=== PATIENT | female | born 1965 | race Hispanic/Latino ===

== ENCOUNTER 2021-09-10 20:57 | Emergency (ER) | payer SELFPAY ==
[2021-09-10] MEDS ORDERED: cloNIDine 0.2 MG TAB PO ONE (21:37)
[2021-09-10 21:38] LABS: Basophils % (Auto) 0.5 % (0.0-1.8); Eosinophils # (Auto) 0.4 K/mm3 (0.0-0.4); Eosinophils % (Auto) 5.7 % (0.0-4.3); Hematocrit 41.6 % (30.3-42.9); Hemoglobin 14.6 gm/dl (10.1-14.3); Lymphocytes # (Auto) 1.5 K/mm3 (1.2-5.4); Lymphocytes % (Auto) 20.7 % (13.4-35.0); Mean Corpuscular HGB Conc 35 % (30-34); Mean Corpuscular Volume 97 fl (79-97); Monocytes # (Auto) 0.5 K/mm3 (0.0-0.8); Monocytes % (Auto) 6.5 % (0.0-7.3); Platelet Count 189 K/mm3 (140-440); Red Blood Count 4.27 M/mm3 (3.65-5.03); Red Cell Distribution Width 13.2 % (13.2-15.2)
[2021-09-10 21:57] LABS: BUN/Creatinine Ratio 17; Blood Urea Nitrogen 15 mg/dL (7-17); Calcium 9.3 mg/dL (8.4-10.2); Hemolysis Index 13
[2021-09-10] MEDS ORDERED: POTASSIUM CHLORIDE ER 20 MEQ TAB PO ONE (22:02)
[2021-09-10] MEDS ORDERED: hydrALAZINE 20 MG/1 ML INJ IV ONE ×2 (22:50→23:40)
[2021-09-10 23:32] LABS: Bilirubin,Urine NEG (Negative); Blood,Urine MOD (Negative); Color,Urine Straw (Yellow); Protein,Urine <15 mg/dL mg/dL (Negative)
[2021-09-10 23:35] LABS: Amphetamine Screen,Urine Negative; Benzodiazepines Screen,Urine Negative; Cannabinoid Screen,Urine Negative; Cocaine Screen,Urine Negative; Methadone Screen,Urine Negative; Opiate Screen,Urine Negative
--- NOTE | 2021-09-11 00:30 | Emergency Department Report ---
ED Psych HPI - General Stated Complaint: MH EVAL Time Seen by Provider: 09/10/21 21:11 Source: family, EMS Mode of arrival: Ambulatory Limitations: Language Barrier - History of Present Illness Initial Comments: famil requested MH evaluation for halucination and violence , H.O of schizophrenia not taking her meds Complaint: other -: days(s) Associated Psychiatric Symptoms: auditory hallucinations History of same: Yes Quality: constant Context: not taking psychiatric Associated Symptoms: denies: denies other symptoms, confusion, headache - Related Data Previous Rx's Medication Instructions Recorded Last Taken Type amLODIPine 10 mg PO DAILY #30 tab 05/28/13 Unknown Rx hydroCHLOROthiazide [HCTZ] 12.5 mg PO QDAY #30 capsule 05/28/13 Unknown Rx Mirtazapine [Remeron] 7.5 mg PO QHS #30 09/12/21 Unknown Rx risperiDONE [RisperDAL] 0.5 mg PO BID #60 09/12/21 Unknown Rx Allergies Allergy/AdvReac Type Severity Reaction Status Date / Time No Known Allergies Allergy Unverified 05/25/13 22:08 ED Review of Systems ROS: Stated complaint: MH EVAL Other details as noted in HPI Comment: language ED Past Medical Hx - Past Medical History Previous Medical History?: Yes Hx Psychiatric Treatment: Yes (schizophrenia) Additional medical history: paranoia, hallucinations, aggressive behavior. - Surgical History Past Surgical History?: No Additional Surgical History: unknown - Social History Smoking Status: Unknown if ever smoked Substance Use Type: None - Medications Home Medications: Home Medications Medication Instructions Recorded Confirmed Last Taken Type amLODIPine 10 mg PO DAILY #30 tab 05/28/13 09/11/21 Unknown Rx hydroCHLOROthiazide [HCTZ] 12.5 mg PO QDAY #30 capsule 05/28/13 09/11/21 Unknown Rx Mirtazapine [Remeron] 7.5 mg PO QHS #30 09/12/21 Unknown Rx risperiDONE [RisperDAL] 0.5 mg PO BID #60 09/12/21 Unknown Rx ED Physical Exam - General Limitations: Language Barrier General appearance: alert - Head Head exam: Present: atraumatic, normocephalic - Eye Eye exam: Present: normal appearance - ENT ENT exam: Present: mucous membranes moist - Neck Neck exam: Present: normal inspection - Respiratory Respiratory exam: Present: normal lung sounds bilaterally. Absent: respiratory distress - Cardiovascular Cardiovascular Exam: Present: regular rate, normal rhythm. Absent: systolic murmur, diastolic murmur, rubs, gallop - GI/Abdominal GI/Abdominal exam: Present: soft, normal bowel sounds - Extremities Exam Extremities exam: Present: normal inspection - Back Exam Back exam: Present: normal inspection - Neurological Exam Neurological exam: Present: alert, oriented X3 - Psychiatric Psychiatric exam: Present: flat affect - Skin Skin exam: Present: warm, dry, intact, normal color. Absent: rash ED Course Vital Signs 09/10/21 09/10/21 09/10/21 21:29 22:52 23:46 Temperature 98.7 F Pulse Rate 77 72 Respiratory 18 Rate Blood Pressure 224/114 Blood Pressure 265/137 229/106 [Left] O2 Sat by Pulse 97 Oximetry 09/11/21 09/11/21 09/11/21 00:23 06:12 14:32 Temperature 98.2 F Pulse Rate 63 65 Respiratory 18 Rate Blood Pressure Blood Pressure 143/77 177/90 [Left] O2 Sat by Pulse 98 98 96 Oximetry 09/11/21 09/12/21 09/12/21 20:21 05:32 09:00 Temperature 98.7 F 98.9 F Pulse Rate 63 66 Respiratory 18 18 Rate Blood Pressure Blood Pressure 189/103 162/87 [Left] O2 Sat by Pulse 100 98 97 Oximetry ED Medical Decision Making - Lab Data Result diagrams: 09/10/21 21:29 09/10/21 21:29 Critical care attestation.: If time is entered above; I have spent that time in minutes in the direct care of this critically ill patient, excluding procedure time. ED Disposition Clinical Impression: Schizophrenia Disposition: 01 HOME / SELF CARE / HOMELESS Is pt being admited?: No Does the pt Need Aspirin: No Condition: Stable Instructions: Schizophrenia, Supporting Someone With Schizophrenia, Managing Schizophrenia Additional Instructions: Professional and Agency Contacts To help [facility] (08/12) [place] Crisis Line: Suicide Prevention Line: Crisis Text Line: Text START to 417793 Emergency: 911 Outpatient COMMUNITY Behavioral Health Resources: [facility]: [facility] [address], [place] [address] [facility] [address] [place] [address] Thursday thru Thursday - 8am - 5pm Call to schedule an assessment for mental health and substance abuse programs [facility] Address: [address] [place] [address] Thursday thru Thursday- 7am-2pm [facility] Address: [address] [place] [id number] Thursday thrthursday: 8:30AM-5PM Prescriptions: Mirtazapine [Remeron] 7.5 mg PO QHS #30 risperiDONE [RisperDAL] 0.5 mg PO BID #60 Referrals: PRIMARY CARE, [Primary Care Provider] - 3-5 Days
[2021-09-11] MEDS ORDERED: diphenhydrAMINE 50 MG/ML VIAL IM PRN (08:15)
[2021-09-11] MEDS ORDERED: LORazepam 2 MG/ML VIAL IM PRN (08:15)
[2021-09-11] MEDS ORDERED: HALOPERIDOL LACTATE 5 MG/1 ML INJ IM PRN (08:15)
--- NOTE | 2021-09-11 12:30 | Consultation ---
History of Present Illness - Reason for Consult Consult date: 09/11/21 Reason for consult: hallucinations - History of Present Psychiatric Illness HPI: famil requested MH evaluation for halucination and violence , H.O of schizophrenia not taking her meds. The patient was seen today. An trucksmith was used. The patient appears subdued, and unable to give a lot of information. She doesn't respond to most questions, or is slow to respond. She says her son called 911 because she had a fever. This is not the reason noted for the patient being brought to the ER. She says she has a history of schizophrenia. I'm unable to get further information out of this patient. Will start medications based on the son's collateral, and recommend inpatient until I'm able to get more out of the patient. PAST PSYCHIATRIC HISTORY: Unable to obtain PAST MEDICAL HISTORY: Family Psychiatric History: None reported or documented SOCIAL HISTORY Unable to obtain REVIEW OF SYSTEMS Unable to obtain MENTAL STATUS EXAMINATION Unable to obtain Diagnoses: Schizophrenia Treatment Plan: 1013 Start Remeron 7.5mg po qhs Start Risperidone 0.5mg po BID PSYCHOTHERAPY: Supportive psychotherapy provided MEDICAL: Per primary team DELIRIUM PRECAUTIONS: Please re-orient patient frequently, keep lights on during the day, and minimize benzodiazepines and opiates as these medications could worsen patient's confusion. INSTRUCTIONAL TECHNOLOGY TEACHER: Per medical team DISPOSITION: recommend acute inpatient psychiatric hospitalization at this time. FOLLOW-UP: Will follow Thank you for the consult. Please contact with any questions and/or concerns. Medications and Allergies Allergies Allergy/AdvReac Type Severity Reaction Status Date / Time No Known Allergies Allergy Unverified 05/25/13 22:08 Home Medications Medication Instructions Recorded Confirmed Last Taken Type amLODIPine 10 mg PO DAILY #30 tab 05/28/13 Unknown Rx hydroCHLOROthiazide [HCTZ] 12.5 mg PO QDAY #30 capsule 05/28/13 Unknown Rx Active Meds: Active Medications Diphenhydramine HCl (Diphenhydramine 50 Mg/Ml Vial) 50 mg IM Q6H PRN PRN Reason: Agitation Last Admin: 09/11/21 08:30 Dose: 50 mg Haloperidol Lactate (Haloperidol Lactate 5 Mg/1 Ml Inj) 10 mg IM Q8H PRN PRN Reason: Agitation Lorazepam (Lorazepam 2 Mg/Ml Vial) 2 mg IM Q8H PRN PRN Reason: Agitation Last Admin: 09/11/21 08:30 Dose: 2 mg Mental Status Exam - Vital signs Last Vital Signs Temp 98.7 F 09/10/21 21:29 Pulse 63 09/11/21 00:23 Resp 18 09/10/21 21:29 BP 143/77 09/11/21 00:23 Pulse Ox 98 09/11/21 06:12 Results Result Diagrams: 09/10/21 21:29 09/10/21 21:29 Abnormal lab results 09/10/21 09/10/21 09/10/21 Range/Units 21:29 21:29 21:29 Hgb 14.6 H (10.1-14.3) gm/dl MCH 34 H (28-32) pg MCHC 35 H (30-34) % Eos % (Auto) 5.7 H (0.0-4.3) % Potassium 3.0 L (3.6-5.0) mmol/L Salicylates < 0.3 L (2.8-20.0) mg/dL Acetaminophen (10.0-30.0) ug/mL 09/10/21 Range/Units 21:29 Hgb (10.1-14.3) gm/dl MCH (28-32) pg MCHC (30-34) % Eos % (Auto) (0.0-4.3) % Potassium (3.6-5.0) mmol/L Salicylates (2.8-20.0) mg/dL Acetaminophen 5.0 L (10.0-30.0) ug/mL All other labs normal.
[2021-09-11] MEDS: risperiDONE 0.25 MG TAB PO SCH (13:11)
[2021-09-11] MEDS ORDERED: MIRTAZAPINE 15 MG TAB PO SCH (22:00)
--- NOTE | 2021-09-12 09:37 | Progress Note ---
Subjective - Reason for Consult Consult date: 09/12/21 Reason for consult: MHE - Chief Complaint Chief complaint: The patient was seen today. An lang interpreter was utilized. The patient says she feels good and she slept good. She says she lives with her kids and ready to go home. The patient denies SI/HI or hallucinations of any kind. I discussed with the patient the importance of continuing her medications. She verbalized understanding. This patient is clear from psych standpoint. She can now be treated on an outpatient basis. REVIEW OF SYSTEMS Constitutional: Negative for weight loss ENT: Negative for stridor Respiratory: Negative for cough or hemoptysis All other systems reviewed and are negative MENTAL STATUS EXAMINATION General Appearance and Behavior: Age appropriate, good hygiene, wearing appropriate clothes, good eye contact, calm, cooperative Cooperation: Participating/engaged Psychomotor Behavior: Psychomotor normal Mood: good Affect and affective range: congruent with stated mood Thought Process: logical Thought Content: None Speech: normal tone and pace Suicidal Ideation: Denies Homicidal Ideation: Denies Hallucinations: Denies Delusions: None elicited Impulse Control: Limited Insight and Judgment: Limited insight and judgment Memory: Limited Attention: attentive Orientation: Alert, oriented Diagnoses: Schizophrenia Treatment Plan: d/c 1013 Remeron 7.5mg po qhs Risperidone 0.5mg po BID PSYCHOTHERAPY: Supportive psychotherapy provided MEDICAL: Per primary team DELIRIUM PRECAUTIONS: Please re-orient patient frequently, keep lights on during the day, and minimize benzodiazepines and opiates as these medications could worsen patient's confusion. PSYCHOLOGISTS: Per medical team DISPOSITION: Do not recommend acute inpatient psychiatric hospitalization at this time. The head athletic trainer to provide the patient with all necessary resources. FOLLOW-UP: Will sign off. Thank you for the consult. Please contact with any questions and/or concerns. Case staffed with Dr. Brock. Mental Status Exam - Vital signs Last Vital Signs Temp 98.7 F 09/11/21 20:21 Pulse 63 09/11/21 20:21 Resp 18 09/11/21 20:21 BP 189/103 09/11/21 20:21 Pulse Ox 98 09/12/21 05:32
[2021-09-12] MEDS: risperiDONE 0.25 MG TAB PO SCH (09:58)
[2021-09-12] MEDS ORDERED: POTASSIUM CHLORIDE ER 20 MEQ TAB PO ONE (11:05)
[2021-09-12 11:12] VITALS: BP 162/87
== END 2021-09-12 12:42 | disposition home or self-care (01) ==
LOC: ED 20:57 → EEVIPCON 20:57 → ED 09-12 12:42
DX: F20.9 Schizophrenia, unspecified (principal); Z79.899 Other long term (current) drug therapy; Z20.822 Contact with and (suspected) exposure to COVID-19
CPT/HCPCS: 36415; 80048; 80307; 81001; 85025; 96372; 96374; 96376; 99285; J0360; J1200; J2060; U0003; 80320; 96375; G0480